=== PATIENT | female | born 1990 | race Caucasian/White ===

== ENCOUNTER 2016-10-05 16:08 | Emergency (ER) | payer SELFPAY ==
[~2016-10-05] VITALS: Ht 157.5 cm; Wt 110.7 kg
[2016-10-05 19:41] VITALS: BP 114/74
== END 2016-10-05 19:41 | disposition home or self-care (01) ==
LOC: ED 16:08
DX: G43.909 Migraine, unspecified, not intractable, without status migrainosus (principal); Z79.899 Other long term (current) drug therapy; Z90.49 Acquired absence of other specified parts of digestive tract
CPT/HCPCS: J1885; J2405; Q0163

== ENCOUNTER 2017-01-31 23:32 | Emergency (ER) | payer SELFPAY ==
[~2017-01-31] VITALS: Ht 157.5 cm; Wt 111.1 kg
[2017-02-01 00:50] VITALS: BP 131/84
== END 2017-02-01 00:50 | disposition home or self-care (01) ==
LOC: ED 23:32
DX: S39.012A Strain of muscle, fascia and tendon of lower back, initial encounter (principal); X58.XXXA Exposure to other specified factors, initial encounter; Y93.89 Activity, other specified; Y99.8 Other external cause status; Y92.89 Other specified places as the place of occurrence of the external cause
CPT/HCPCS: J1885

== ENCOUNTER 2017-02-24 23:01 | Emergency (ER) | payer SELFPAY ==
[2017-02-25 02:08] LABS: CARBON DIOXIDE 26.8 mmol/L (21-32); CHLORIDE SERUM 101 mmol/L (98-107); CREATININE SERUM 0.7 mg/dL (0.6-1.0); GFR1 > 60 mL/min; GLUCOSE SERUM 84 mg/dL (74-106); POTASSIUM SERUM 3.8 mmol/L (3.5-5.1); SODIUM SERUM 135 mmol/L (136-145)
[2017-02-25 03:00] VITALS: BP 124/82
== END 2017-02-25 04:06 | disposition left against medical advice (07) ==
LOC: ED 23:01
PROVIDERS: Emergency Medicine Emergency Medical Services
DX: O21.9 Vomiting of pregnancy, unspecified (principal); G43.909 Migraine, unspecified, not intractable, without status migrainosus; Z90.49 Acquired absence of other specified parts of digestive tract; Z3A.01 Less than 8 weeks gestation of pregnancy
CPT/HCPCS: 36415; Q0162

== ENCOUNTER 2018-03-20 16:21 | Emergency (ER) | payer OTHER ==
[~2018-03-20] VITALS: Ht 157.5 cm; Wt 110.2 kg
[2018-03-20 16:45] VITALS: BP 143/85; Ht 157.5 cm; Wt 110.2 kg
== END 2018-03-20 19:16 | disposition left against medical advice (07) ==
LOC: ED 16:21
DX: Z53.21 Procedure and treatment not carried out due to patient leaving prior to being seen by health care provider (principal)